=== PATIENT | female | born 1940 | race Caucasian/White ===

== ENCOUNTER 2020-01-05 17:13 | Emergency (ER) | payer MEDICARE, BC ==
[~2020-01-05] VITALS: Ht 152.4 cm; Wt 63.5 kg
[~2020-01-05 17:13] MED LIST: ATEN25TA PO; CLON0.1T PO; FLUT1DIS3 IH; LANS30CA56 PO; LOSA1TAB36 PO; [UNRECOGNIZED DRUG - OTHER] PO
--- NOTE | 2020-01-05 17:20 | NUR ---
PT BIB [facility] C/O HEADACHE FOR 3 DAYS, PT IS AAOX3, NOT IN RESPIRATORY DISTRESS, HOOKED TO MONITOR, KEPT RESTED AND COMFORTABLE, WILL CONTINUE TO MONITOR.
--- NOTE | 2020-01-05 17:30 | NUR ---
SEEN AND EXAMINED BY .
--- NOTE | 2020-01-05 17:40 | NUR ---
PT IS WHEELED TO CT SCAN VIA [facility].
[2020-01-05] MEDS ORDERED: HYDROCODONE/APAP 5/325MG 1 EACH TABLET ONE (18:32)
[2020-01-05] MEDS ORDERED: ONDANSETRON 4 MG TAB.RAPDIS ONE (18:32)
[2020-01-05] MEDS ORDERED: HYDROCODONE/APAP 5/325MG 1 EACH TABLET PO ONE (19:00)
[2020-01-05] MEDS ORDERED: ONDANSETRON 4 MG TAB.RAPDIS SL ONE (19:00)
--- NOTE | 2020-01-05 19:13 | NUR ---
REPORT GIVEN TO NAVDEEP SANTOS FOR HEATH.
--- NOTE | 2020-01-05 19:56 | NUR ---
Patient discharged to home in stable condition. Written and verbal after care instructions given. Patient verbalizes understanding of instruction.
--- NOTE | 2020-01-05 19:56 | NUR ---
Prescriptions provided to patient, and explained to the patient.
[2020-01-05 19:57] VITALS: BP 128/79
== END 2020-01-05 19:57 | disposition home or self-care (01) ==
LOC: ER 17:26
DX: J32.9 Chronic sinusitis, unspecified (principal); R51 Headache; J45.909 Unspecified asthma, uncomplicated; K21.9 Gastro-esophageal reflux disease without esophagitis; I10 Essential (primary) hypertension; E78.5 Hyperlipidemia, unspecified; Z98.890 Other specified postprocedural states; Z88.5 Allergy status to narcotic agent; Z79.899 Other long term (current) drug therapy
CPT/HCPCS: 70450; 99284; Q0162

== ENCOUNTER 2024-08-23 16:10 | Emergency (ER) | payer MEDICARE, BC ==
[~2024-08-23] VITALS: Ht 152.4 cm; Wt 41.3 kg
[2024-08-23 16:15] VITALS: TEMP 98.3
[2024-08-23] MEDS ORDERED: MECLIZINE HCL 25 MG TABLET ONE (16:42)
[2024-08-23] MEDS: MECLIZINE HCL 25 MG TABLET PO ONE (16:48)
[2024-08-23 17:06] LABS: BASOPHILS % (AUTO) 0.8 % (0.0-2.0); EOSINOPHILS # (AUTO) 0.2 K/uL (0.0-0.7); EOSINOPHILS % (AUTO) 4.7 % (0.0-6.0); HEMATOCRIT 32 % (33-45); HEMOGLOBIN 10.5 g/dL (11.5-14.8); LYMPHOCYTES # (AUTO) 1.2 K/uL (0.8-4.8); MEAN CORPUSCULAR HEMOGLOBIN 31 PG (26.0-33.0); MEAN CORPUSCULAR HGB CONC 33 g/dl (31.0-36.0); MEAN CORPUSCULAR VOLUME 93 fL (82-100); MONOCYTES # (AUTO) 0.4 K/uL (0.1-1.30); NEUTROPHILS # (AUTO) 3.3 K/uL (1.8-8.9); NEUTROPHILS % (AUTO) 63.5 % (43.0-81.0); PLATELET COUNT (AUTO) 197 K/uL (150-450); RED BLOOD CELL COUNT(AUTO) 3.42 MIL/uL (4.0-5.2); RED CELL DISTRIBUTION WIDTH 14.6 % (11.5-15.0); WHITE BLOOD COUNT (AUTO) 5.3 K/uL (4.3-11.0)
[2024-08-23] MEDS ORDERED: NICARDIPINE HCL 40 MG in IV NS 0.9% 184 ML IV PRN (17:30)
[2024-08-23 17:33] LABS: ALANINE AMINOTRANSFERASE 22 U/L (12-78); ALBUMIN 3.7 g/dL (3.4-5.0); ALKALINE PHOSPHATASE 66 U/L (46-116); ASPARTATE AMINOTRANSFERASE 17 U/L (15-37); BILIRUBIN,DIRECT 0.2 mg/dL (0.0-0.2); BILIRUBIN,TOTAL 0.6 mg/dL (0.2-1.0); CALCIUM, SERUM 9.1 mg/dL (8.5-10.1); CARBON DIOXIDE 27 mmol/L (21-32); CHLORIDE 103 mmol/L (98-107); CREATININE 0.8 mg/dL (0.6-1.3); GLUCOSE 115 mg/dL (74-106); NT-PRO BNP 1369 pg/mL (0-125); POTASSIUM 3.6 mmol/L (3.5-5.1); SODIUM SERUM 139 mmol/L (136-145); TOTAL PROTEIN, SERUM 7.2 g/dL (6.4-8.2); UREA NITROGEN, BLOOD 17 mg/dL (7-18)
[2024-08-23] MEDS: LEVETIRACETAM (500MG) 1,000 MG in PREMIX 90 EA IV SCH (18:00)
[2024-08-23] MEDS: NICARDIPINE IN DEXTROSE,ISO-OS 200 ML IV PRN (18:15)
[2024-08-23] MEDS ORDERED: DOXA2TAB2 PO (18:59)
[2024-08-23] MEDS ORDERED: CARV25TA2 PO (18:59)
[2024-08-23] MEDS ORDERED: SACU1TAB4 PO (18:59)
[2024-08-23] MEDS ORDERED: FURO40TA5 PO (18:59)
[2024-08-23] MEDS ORDERED: ASPI-1169 PO (18:59)
[2024-08-23] MEDS ORDERED: ZOLP5TAB8 PO (18:59)
[2024-08-23 20:19] VITALS: BP 149/71; O2SAT 96
== END 2024-08-23 20:50 | disposition left against medical advice (07) ==
LOC: ER 16:16 → ICU 19:33 → UNDOADMIN 19:33 → ICU 20:46 → TRANSITION 20:46
DX: S06.5X0A Traumatic subdural hemorrhage without loss of consciousness, initial encounter (principal); I10 Essential (primary) hypertension; K21.9 Gastro-esophageal reflux disease without esophagitis; J45.909 Unspecified asthma, uncomplicated; Z88.8 Allergy status to other drugs, medicaments and biological substances; X58.XXXA Exposure to other specified factors, initial encounter; Y93.89 Activity, other specified; Y92.89 Other specified places as the place of occurrence of the external cause; Y99.8 Other external cause status
CPT/HCPCS: 99291; 96365; 70450; 96368; 93005; 71045; 85025; 80048; 80076; 36415; 84484; 87081; 83880; 82962; J8597; J7050; J1953; A4223 ×2; A4216; G0378